=== PATIENT | male | born 1995 | race Caucasian/White ===

== ENCOUNTER 2017-03-26 08:36 | Emergency (ER) | payer OTHER ==
[~2017-03-26] VITALS: Ht 182.9 cm; Wt 97.5 kg
[~2017-03-26 08:36] MED LIST: AUGMENTIN 875-1 EACH PO
[2017-03-26] MEDS ORDERED: CILOXAN5 ML OD (08:57)
== END 2017-03-26 09:17 | disposition home or self-care (01) ==
LOC: ED 08:36
DX: H10.9 Unspecified conjunctivitis (principal); Z90.89 Acquired absence of other organs; Z98.890 Other specified postprocedural states; Z88.5 Allergy status to narcotic agent; Z79.2 Long term (current) use of antibiotics
CPT/HCPCS: 99283